=== PATIENT | female | born 1990 | race Caucasian/White ===

== ENCOUNTER 2017-08-07 20:51 | Emergency (ER) | payer BC ==
[~2017-08-07] VITALS: Ht 170.2 cm; Wt 68.9 kg
[~2017-08-07 20:51] MED LIST: MICROGESTIN FE1 EAC1 PO; NAPROSYN500 MG PO; NORCO 7.5/321 TABLET PO
[2017-08-07 22:50] LABS: HEMATOCRIT 37.2 % (36.0-46.0); MCH 30.3 PG (29.0-34.0); MCHC 35.5 G/DL (30.0-36.0); MCV 85.3 FL (83-99); MEAN PLAT.VOLUME 9.7 uM^3 (9.5-12.4); PLATELET COUNT 268 K/uL (156-360); RBC DIS.WIDTH-CV 11.5 % (11.8-14.6); RBC DIS.WIDTH-SD 35.8 % (39-53); RED BLOOD COUNT 4.36 M/uL (3.80-5.20); WHITE BLOOD COUNT 12.7 K/uL (4.1-10.2)
[2017-08-07 23:01] LABS: CHLORIDE 107 mEq/L (99-109); POTASSIUM 4.2 mEq/L (3.7-5.4); SODIUM 139 mEq/L (136-147)
[2017-08-07 23:02] LABS: GLUCOSE 93 mg/dL (70-99)
[2017-08-07 23:04] LABS: ANION GAP 14 MEQ/L (2-14)
[2017-08-07 23:06] LABS: GFR ESTIMATE (CALCULATED) > 59 mL/min/
[2017-08-07 23:07] LABS: UREA NITROGEN (BUN) 8 mg/dL (9-23)
[2017-08-07 23:12] LABS: ADD MIUA? YES; BILIRUBIN NEGATIVE; BLOOD NEGATIVE; COLOR YELLOW ((YELLOW)); GLUCOSE (STRIP) NEGATIVE; KETONES 80; LEUKOCYTES NEGATIVE; NITRITE NEGATIVE; PROTEIN (STRIP) 30; SPECIFIC GRAVITY 1.032 (1.000-1.030)
[2017-08-07 23:31] LABS: QUANTITATIVE HCG 91970.3 MIU/ML
[2017-08-07 23:37] LABS: BACTERIA 2+ /HPF; EPITHELIAL CELLS 2+ /HPF; MUCUS 3+ /LPF; RED BLOOD CELLS 0-5 /HPF (0-5); UCUL ADDED? YES; WHITE BLOOD CELLS 0-5 /HPF (0-5)
[2017-08-07 23:38] LABS: AMORPHOUS URATES CRYSTALS 1+; CRYSTALS PRESENT
[2017-08-08 00:44] VITALS: BP 118/72
[2017-08-08] MEDS ORDERED: PRENATAL TABLE1 EAC3 PO (18:19)
== END 2017-08-08 00:45 | disposition home or self-care (01) ==
LOC: EME 20:51
PROVIDERS: Physician Assistant
DX: O99.281 Endocrine, nutritional and metabolic diseases complicating pregnancy, first trimester (principal); E86.0 Dehydration; O21.0 Mild hyperemesis gravidarum; Z3A.11 11 weeks gestation of pregnancy
CPT/HCPCS: 80048; 81003; 84702; 85027; 87086; 99281; 99285; J2405; J7030

== ENCOUNTER 2018-02-22 12:59 | Inpatient (IN) | payer BC ==
[~2018-02-22] VITALS: Ht 170.2 cm; Wt 77.1 kg
[2018-02-22] VITALS (15 sets, daily range): BP systolic 126–156; BP diastolic 72–93
[~2018-02-22 12:59] MED LIST changes: +PRENATAL TABLE1 EAC3 PO
[2018-02-22 15:01] LABS: BASOPHIL (%) 0.2 % (0-1); EOSINOPHIL (%) 1.2 % (0-5); EOSINOPHIL COUNT 0.1 K/uL (0-0.3); HEMATOCRIT 33.7 % (36.0-46.0); HEMOGLOBIN 11.3 G/DL (11.9-15.5); IMMATURE GRANULOCYTE (%) 0.3 % (0.0-0.7); LYMPHOCYTE (%) 16.6 % (15-42); LYMPHOCYTE COUNT 1.6 K/uL (1.0-2.8); MCH 28.2 PG (29.0-34.0); MCHC 33.5 G/DL (30.0-36.0); MONOCYTE (%) 11.2 % (3-12); MONOCYTE COUNT 1.1 K/uL (0-0.8); NEUTROPHIL (%) 70.5 % (45-76); NEUTROPHIL COUNT 6.8 K/uL (1.8-6.4); PLATELET COUNT 223 K/uL (156-360); RBC DIS.WIDTH-CV 12.6 % (11.8-14.6); RBC DIS.WIDTH-SD 38.1 % (39-53); RED BLOOD COUNT 4.01 M/uL (3.80-5.20); WHITE BLOOD COUNT 9.7 K/uL (4.1-10.2)
[2018-02-22 15:05] LABS: UR CREATININE CONCENTRATION 80.1 MG/DL
[2018-02-22 15:06] LABS: AMPHETAMINE NEGATIVE (500 ng/mL); BARBITURATES NEGATIVE (200 ng/mL); BENZODIAZEPINES NEGATIVE (150 ng/mL); BUPRENORPHINE NEGATIVE (10 ng/mL); COCAINE NEGATIVE (150 ng/mL); METHADONE NEGATIVE (200 ng/mL); METHAMPHETAMINE NEGATIVE (500 ng/mL); OPIATES (MORPHINE) NEGATIVE (100 ng/mL); OXYCODONE NEGATIVE (100 ng/mL); PHENCYCLIDINE NEGATIVE (25 ng/mL); PROPOXYPHENE NEGATIVE (300 ng/mL); THC CANNABINOIDS NEGATIVE (50 ng/mL); TRICYCLIC ANTIDEPRESSANTS NEGATIVE (300 ng/mL)
[2018-02-22 15:09] LABS: ALBUMIN 3.4 g/dL (3.2-4.8); CHLORIDE 108 mEq/L (99-109); POTASSIUM 4.1 mEq/L (3.7-5.4); SODIUM 138 mEq/L (136-147)
[2018-02-22 15:11] LABS: GLUCOSE 112 mg/dL (70-99)
[2018-02-22 15:13] LABS: TOTAL BILIRUBIN 0.3 mg/dL (0.0-1.0)
[2018-02-22 15:15] LABS: ALKALINE PHOSPHATASE 263 IU/L (3-129); CREATININE 0.7 mg/dL (0.6-1.3); GFR ESTIMATE (CALCULATED) > 59 mL/min/
[2018-02-22 15:16] LABS: UREA NITROGEN (BUN) 9 mg/dL (9-23)
[2018-02-22 15:17] LABS: AST (GOT) 17 IU/L (2-34)
[2018-02-22 15:18] LABS: ALT (GPT) 11 IU/L (3-49); URIC ACID 5.8 mg/dL (3.1-9.2)
[2018-02-22 15:57] LABS: LACTATE DEHYDROGENASE 174 IU/L (20-246)
[2018-02-23] VITALS (15 sets, daily range): BP systolic 112–151; BP diastolic 63–86
[2018-02-24 05:51] LABS: BASOPHIL (%) 0.2 % (0-1); EOSINOPHIL (%) 1.8 % (0-5); EOSINOPHIL COUNT 0.2 K/uL (0-0.3); HEMATOCRIT 27.9 % (36.0-46.0); IMMATURE GRANULOCYTE (%) 0.6 % (0.0-0.7); LYMPHOCYTE (%) 17.9 % (15-42); LYMPHOCYTE COUNT 2.3 K/uL (1.0-2.8); MCH 27.6 PG (29.0-34.0); MCHC 32.3 G/DL (30.0-36.0); MCV 85.6 FL (83-99); MONOCYTE (%) 8.8 % (3-12); MONOCYTE COUNT 1.1 K/uL (0-0.8); NEUTROPHIL (%) 70.7 % (45-76); PLATELET COUNT 186 K/uL (156-360); RBC DIS.WIDTH-CV 12.9 % (11.8-14.6); RBC DIS.WIDTH-SD 39.7 % (39-53); RED BLOOD COUNT 3.26 M/uL (3.80-5.20); WHITE BLOOD COUNT 12.8 K/uL (4.1-10.2)
[2018-02-24 07:29] VITALS: BP 117/62
[2018-02-24 15:44] VITALS: BP 114/59
[2018-02-24 23:36] VITALS: BP 115/65
[2018-02-25 07:35] VITALS: BP 123/74
[2018-02-25] MEDS ORDERED: CHROMAGEN,1 CAPSULE PO (14:24)
[2018-02-25] MEDS ORDERED: IBUPROFEN800 MG PO (14:25)
[2018-02-25 14:57] VITALS: BP 126/75
== END 2018-02-25 15:35 | disposition home or self-care (01) | DRG 775 ==
LOC: LDRP-OP 12:59 → 2WEST 13:00
PROVIDERS: Advanced Practice Midwife
DX: O70.0 First degree perineal laceration during delivery (principal); O76 Abnormality in fetal heart rate and rhythm complicating labor and delivery; O99.02 Anemia complicating childbirth; D62 Acute posthemorrhagic anemia; Z3A.39 39 weeks gestation of pregnancy; Z37.0 Single live birth; Z83.3 Family history of diabetes mellitus; Z82.49 Family history of ischemic heart disease and other diseases of the circulatory system; Z80.0 Family history of malignant neoplasm of digestive organs
CPT/HCPCS: 80053; 82570; 83615; 84156; 84550; 85025; C1755; G0378; J0595; J2405; J3010; J7120